=== PATIENT | female | born 1965 | race Two or more races ===

== ENCOUNTER 2017-02-26 08:09 | Emergency (ER) | payer OTHER ==
[~2017-02-26] VITALS: Ht 172.7 cm; Wt 87.1 kg
[2017-02-26 08:30] VITALS: BP 145/88
== END 2017-02-26 08:44 | disposition home or self-care (01) ==
LOC: ER 08:09
DX: F90.9 Attention-deficit hyperactivity disorder, unspecified type (principal); I10 Essential (primary) hypertension; Z76.0 Encounter for issue of repeat prescription